=== PATIENT | male | born 1960 | race Caucasian/White ===

== ENCOUNTER → 2021-02-15 13:41 | Outpatient (CLI) | payer MEDICAID, SELFPAY ==
[2021-02-15 13:47] LABS: Basophils # 0.1 K/mm3 (0-0.2); Basophils % 1.1 % (0.1-2.0); Eosinophils # 0.1 K/mm3 (0.0-0.4); Eosinophils % 2.4 % (0.1-12.0); Hematocrit 48.3 % (42.0-52.0); Lymphocytes # 0.9 K/mm3 (0.7-4.5); Lymphocytes % 18.1 % (10-50); Mean Corpuscular HGB Conc 33.1 g/dL (31.8-35.4); Mean Corpuscular Volume 99.8 fl (80-94); Mean Platelet Volume 8.4 fl (7.4-10.4); Monocytes # 0.3 K/mm3 (0.1-1.0); Monocytes % 6.5 % (1.7-9.3); Neutrophils # 3.7 K/mm3 (1.8-7.8); Platelet Count 306 K/mm3 (142-424); Red Blood Count 4.84 M/mm3 (4.60-6.20); Red Cell Distribution Width 14.5 % (11.5-17.5); White Blood Count 5.1 K/mm3 (4.8-10.8)
[2021-02-15 13:53] LABS: Chloride 99 mmol/L (98-107)
[2021-02-15 13:54] LABS: Potassium 4.5 mmoL/L (3.5-5.1); Sodium 134 mmol/L (136-145)
[2021-02-15 13:56] LABS: Alanine Aminotransferase 29 U/L (12-78); Anion Gap 14.5 mEq/L (5-15); Aspartate Amino Transferase 32 U/L (17-59); Blood Urea Nitrogen 7 mg/dl (9-20); Carbon Dioxide 25 mmol/L (22.0-30.0); Estimated Glomerular Filt Rate 115 ml/min (>60); GFR (African American) 139 ML/MIN (>60)
[2021-02-15 13:57] LABS: Albumin Level 4.5 g/dl (3.5-5.0); Albumin/Globulin Ratio 1.7 (1.1-1.8); Alkaline Phosphatase 97 U/L (38-126); Bilirubin,Total 0.6 mg/dl (0.2-1.3); Calcium 9.3 mg/dl (8.4-10.2); Cholesterol 227 mg/dl (140-200); Globulin 2.7 g/dL (1.3-3.2); Glucose 95 mg/dl (74-100); Total Protein,Serum 7.2 g/dl (6.3-8.2); Triglycerides 73 mg/dl (30-150); VLDL Cholesterol 15 mg/dL (0-40)
[2021-02-15 14:08] LABS: Direct LDL Cholesterol 101.72 mg/dL (100-129)
[2021-02-15 14:13] LABS: T4 (Thyroxine) 8.1 ug/dl (5.53-11.0)
[2021-02-15 14:17] LABS: HDL Cholesterol 111 mg/dl (40-60)
[2021-02-15 14:26] LABS: Thyroid Stimulating Hormone 1.41 uIU/mL (0.465-4.68)
== END ==
PROVIDERS: Visit Provider Family Medicine
DX: Z00.00 Encounter for general adult medical examination without abnormal findings (principal); I10 Essential (primary) hypertension
CPT/HCPCS: 80053; 80061; 84153; 84154; 84436; 84443; 85025

== ENCOUNTER → 2021-03-16 09:00 | Outpatient (CLI) | payer MEDICAID, SELFPAY | PROVIDERS: Visit Provider Family Medicine | DX: Z01.812 Encounter for preprocedural laboratory examination (principal); Z11.52 Encounter for screening for COVID-19; R13.10 Dysphagia, unspecified | CPT/HCPCS: C9803; U0003; U0005 ==

== ENCOUNTER 2021-03-18 10:52 | Day surgery (SDC) | payer MEDICAID, SELFPAY ==
[2021-03-10 13:50] VITALS: BMI 25.1
[2021-03-18 11:15] VITALS: BP 148/96; PULSE 89; RESP 20; TEMP 36.6; O2SAT 97
--- NOTE | 2021-03-18 12:42 | HMH.ANESCL ---
[facility] Anesthesia Checklist - Patient Identification Patient Identification: Arm Band - Structural Data Admitted From: Home Planned Operative Procedure/s: egd Consent for Planned Operative Procedure(s) Verified: Yes Verified Documents: Surgical Consent, History and Physical - NPO Status Verified Time NPO: 00:00 - Additional verifications Anesthesia Reactions: No - Airway Assessment C-Spine Mobility Assessed: Yes (mp2) TMJ Mobility Assessed: Yes Dentition: Poor Dentition - Neurological Assessment Level of Consciousness: Awake, Alert - Anesthesia Plan Anesthesia Risk discussed: Yes Anesthesia Plan: Verified ASA Class: II Anesthesia Type: MAC [facility] History I have reviewed the patient's past medical history: Yes Medical History: Reports:: Hyperlipidemia, Hypertension Denies:: Cancer, Diabetes Mellitus Type 1, Diabetes Mellitus Type 2, Internal Pacemaker, MRSA, Seizures *Have you ever received a pneumonia vaccine?: No *Have you received a flu vaccine this season?: Yes Anesthesia experience/problems:: nac Other Surgeries: Yes: Hernia Repair, Other. No: Pacemaker Amputation: No Fractures: No - *Social History Last grade of school completed: High school graduate Smoking Status: Current every day smoker Tobacco Type: cigarettes # Packs/Day (cigarettes): 1 Alcohol Intake: current Alcohol Intake Frequency:: 0-2 drinks per day Substance Use Type: denies use *Occupational Status:: unemployed Housing: house Household Members: spouse *Travel in the last 8 weeks: None Family Hx:: No significant family history
[2021-03-18 12:55] VITALS: O2SAT 95
--- NOTE | 2021-03-18 13:15 | HMH.SCOPE ---
- Procedure: Date: 03/18/21 Patient Date of :: 1960 Procedure Performed:: Esophagogastroduodenoscopy with biopsy Indications:: Dysphagia Performing Provider:: Yash Pemberton MD Referring Provider:: . Sedation:: Monitored anesthesia care Procedure:: After informed consent was obtained the patient was taken to the endoscopy suite. Sedation ensued after the patient was transferred to the left lateral decubitus position. Pulse, blood pressure, and oxygen saturation were monitored throughout the procedure. The endoscope was advanced beyond the duodenal bulb. Retroflexion within the gastric lumen was accomplished. The gastroscope was carefully removed and the patient was transferred to recovery in stable condition. Please see findings and specimens below for detail. Findings:: Isolated varix at 23 cm Distal esophagitis with mild to moderate associated stricture (gastroscope easily passed without dilation) Moderate patchy gastritis Moderate patchy inflammation of duodenal bulb Specimens:: Antral biopsy Duodenal bulb biopsy Gastroesophageal junction biopsy Recommendations:: Proton pump inhibition (Protonix 40 mg twice daily ordered) Follow-up pathology Dilation may ultimately be required; however, secondary to the need for a GE junction biopsy (increased perforation risk with dilation), as well as, the fact that the gastroscope easily passed into the stomach...dilation was not completed at this setting Complications:: No immediate Estimated blood obtained (mL): 1
[2021-03-18 13:16] VITALS: BP 90/62; PULSE 91; RESP 18; TEMP 36.3; O2SAT 90
[2021-03-18 13:26] VITALS: BP 105/69; PULSE 83; RESP 18; O2SAT 98
[2021-03-18 13:40] VITALS: BP 138/84; PULSE 86; RESP 18; O2SAT 98
--- NOTE | 2021-03-18 13:43 | SUR.PHASEII ---
1317 SUCTIONED WITH [place] FOR LARGE AMT OF CLEAR/WHITE SECRETIONS. PT COUGHING. SCANT AMT OF BLOOD STREAKED SECRETIONS. SATS IMPROVING.
== END 2021-03-18 13:51 | disposition home or self-care (01) ==
LOC: OUTP 10:53
PROVIDERS: PCP Family Medicine; Visit Provider Surgery
PROC: 0DJ08ZZ Inspection of Upper Intestinal Tract, Via Natural or Artificial Opening Endoscopic (ICD-10-PCS; CPT 43235; principal; 2021-03-18 12:00)
DX: I85.00 Esophageal varices without bleeding (principal); K20.80 Other esophagitis without bleeding; K22.2 Esophageal obstruction; K29.60 Other gastritis without bleeding; K31.9 Disease of stomach and duodenum, unspecified; E78.5 Hyperlipidemia, unspecified; I10 Essential (primary) hypertension; Z72.0 Tobacco use
CPT/HCPCS: 43239

== ENCOUNTER → 2021-08-28 08:09 | Outpatient (CLI) | payer MEDICAID, SELFPAY | PROVIDERS: PCP Family Medicine; Visit Provider Surgery | DX: Z01.812 Encounter for preprocedural laboratory examination (principal); Z11.52 Encounter for screening for COVID-19; Z13.810 Encounter for screening for upper gastrointestinal disorder | CPT/HCPCS: C9803; U0003; U0005 ==

== ENCOUNTER 2021-08-31 09:50 | Day surgery (SDC) | payer MEDICAID, SELFPAY ==
[2021-08-31 10:33] VITALS: BP 159/95; PULSE 95; RESP 18; TEMP 36.5; O2SAT 97; BMI 27.1
[2021-08-31 10:45] VITALS: O2SAT 97
--- NOTE | 2021-08-31 10:47 | HMH.ANESCL ---
[facility] Anesthesia Checklist - Structural Data Admitted From: Home Planned Operative Procedure/s: egd Consent for Planned Operative Procedure(s) Verified: Yes - Additional verifications Anesthesia Reactions: No [facility] History Medical History: Reports:: Hyperlipidemia, Hypertension Denies:: Cancer, Diabetes Mellitus Type 1, Diabetes Mellitus Type 2, Internal Pacemaker, MRSA, Seizures *Have you ever received a pneumonia vaccine?: Yes *Have you received a flu vaccine this season?: No Other Surgeries: Yes: Colonoscopy, EGD, Hernia Repair, Other. No: Pacemaker Amputation: No Fractures: No - *Social History Last grade of school completed: High school graduate Smoking Status: Current every day smoker Tobacco Type: cigarettes # Packs/Day (cigarettes): 1 Alcohol Intake: never Alcohol Intake Frequency:: 0-2 drinks per day Substance Use Type: denies use *Occupational Status:: retired Housing: house Household Members: spouse *Travel in the last 8 weeks: None Family Hx:: No significant family history
--- NOTE | 2021-08-31 11:04 | HMH.SCOPE ---
- Procedure: Date: 08/31/21 Patient Date of :: 1960 Procedure Performed:: Esophagogastroduodenoscopy with biopsy Indications:: History of dysphagia History of Martinez's esophagus Performing Provider:: Yash Pemberton MD Referring Provider:: . Sedation:: Monitored anesthesia care Procedure:: After informed consent was obtained the patient was taken to the endoscopy suite. Sedation ensued after the patient was transferred to the left lateral decubitus position. Pulse, blood pressure, and oxygen saturation were monitored throughout the procedure. The endoscope was advanced beyond the duodenal bulb. Retroflexion within the gastric lumen was accomplished. The gastroscope was carefully removed and the patient was transferred to recovery in stable condition. Please see findings and specimens below for detail. Findings:: Sliding hiatal hernia No definitive changes consistent with Martinez's Gastroduodenitis Specimens:: Antral biopsy Duodenal biopsy Gastroesophageal junction biopsy Recommendations:: Follow-up pathology Continue proton pump inhibition Complications:: No immediate Estimated blood obtained (mL): 1
[2021-08-31 11:05] VITALS: BP 147/84; PULSE 98; RESP 18; TEMP 36.4; O2SAT 90
[2021-08-31 11:15] VITALS: BP 134/82; PULSE 89; RESP 16; O2SAT 94
[2021-08-31 11:25] VITALS: BP 93/60; PULSE 85; RESP 19; O2SAT 94
[2021-08-31 11:36] VITALS: BP 105/60; PULSE 89; RESP 19; TEMP 36.4; O2SAT 99
== END 2021-08-31 11:36 | disposition home or self-care (01) ==
LOC: OUTP 09:50
PROVIDERS: PCP Family Medicine; Visit Provider Surgery
PROC: 0DJ08ZZ Inspection of Upper Intestinal Tract, Via Natural or Artificial Opening Endoscopic (ICD-10-PCS; CPT 43235; principal; 2021-08-31 11:00)
DX: K22.719 Barrett's esophagus with dysplasia, unspecified (principal); K44.9 Diaphragmatic hernia without obstruction or gangrene; K29.90 Gastroduodenitis, unspecified, without bleeding; E78.5 Hyperlipidemia, unspecified; I10 Essential (primary) hypertension; Z79.899 Other long term (current) drug therapy; Z72.0 Tobacco use
CPT/HCPCS: 43239